=== PATIENT | female | born 1960 | race Caucasian/White ===

== ENCOUNTER → 2016-04-05 | Outpatient (CLI) | payer BC, OTHER ==
[~2016-04-05] MED LIST: 5 HTP; CALC-732 PO; CATHETER FLUSH 10 ML SYR IV PRN; IBUP-30 PO; IOHEXOL 350 MG/ML 150 ML (OMNIPAQUE 350) VIAL IV ONE; LRT10T PO; MULT1CAP27 PO; NS 100 ML (IVPB) BAG IV ONE; OMG1KC PO; RABE20TA PO
--- OUTSIDE RECORDS SUMMARY | 2016-04-05 09:43 | XMS REPORT | Continuity of Care Document ---
Author Author [facility] Organization [facility] Address Unknown Phone Unavailable Care Team Providers Care Manual Writer Name Role Phone GIO JIMÉNEZ MD PCP Insurance Providers Payer Name Policy Number Subscriber Name Relationship [id number] Fer Chairez Clive 18 Self / Same As Patient [id number] Shae Chairez 01 Advance Directives Directive Response Recorded Date/Time Advance Directives No 07/31/13 4:34pm Health Care Power of Mechanical Commissioning Engineer No 07/31/13 4:34pm Organ Donor Yes 07/31/13 4:34pm Problems No problem information available. Medications Current Home Medications Medication Dose Units Route Directions Days/Qty Instructions Start Date Fish Oil 1,000 Mg 3,000 Mg Oral Daily 11/28/11 Rabeprazole Sodium 20 Mg 20 Mg Oral Daily 11/28/11 Past Home Medications Medication Directions Ordered Status Calcium Carb/Vit D3/Minerals 1 Each Tab.chew, 1 Each Oral Daily 11/28/11 Discontinued Multivitamins 1 Each Capsule, 1 Each Oral Daily 11/28/11 Discontinued [5 Htp] , 11/28/11 Discontinued Loratadine 10 Mg Box, 1 Each Oral As Needed 11/28/11 Discontinued Ibuprofen 200 Mg Tablet, 200 Mg Oral As Needed 11/28/11 Discontinued Social History No social history. Hospital Discharge Instructions No hospital discharge instructions. Plan of Care Discharge Date 10/29/15 6:00am Prescriptions See Medication Section Functional Status No functional status results. Allergies, Adverse Reactions, Alerts Allergen Type Severity Reaction Status Last Updated Penicillins ([id number]) Allergy Unknown Active 02/01/06 Codeine Allergy Unknown Active 02/01/06 Immunizations No immunization records. Vital Signs No known vital signs results. Results No known relevant diagnostic tests, laboratory data and/or discharge summary. Procedures No known history of procedures. Encounters Encounter Location Arrival/Admit Date Discharge/Depart Date Attending Provider Departed Clinic [facility] 10/28/15 8:12pm 10/29/15 6: 00am KENYA SOLIS DO Registered Clinic [facility] 09/29/15 8:09am KENYA SOLIS DO
[2016-04-05 10:24] LABS: CREATININE SERUM 1.05 MG/DL (0.60-1.30)
--- NOTE | 2016-04-05 14:53 | Diagnostic Imaging Report ---
PROCEDURE: CT angiography of the chest with contrast. TECHNIQUE: Multiple contiguous axial images were obtained through the chest after uneventful bolus administration of intravenous contrast. Reconstructed CTA MIP acquisitions were also performed. INDICATION: Restrictive lung disease. Shortness of breath. CONTRAST: 125 mL of Omnipaque 350 is administered intravenously. FINDINGS: The pulmonary arteries demonstrate very good opacification with no filling defects to suggest pulmonary embolism. The thoracic aorta is normal in caliber. No dissection. There is no mediastinal mass or significantly enlarged lymph nodes. No axillary lymphadenopathy is seen. The cardiac size is normal. No pleural or pericardial effusion. There is a 7 mm nodule seen along the anterior aspect of the minor fissure likely related to a scar. There is otherwise no significant consolidation or mass. The osseous structures appear grossly unremarkable. There is mild nonspecific thickening in the left adrenal gland. Cholecystectomy clips are noted. IMPRESSION: 1. No pulmonary embolism or aortic dissection. 2. A 7 mm nodule along the anterior aspect of the minor fissure is favored to be a scar. Followup low-dose CT chest without contrast in four months is suggested to ensure stability. Dictated by: Dictated on workstation # [id number]
== END ==
LOC: RAD 09:40
PROVIDERS: ATTEND Nurse Practitioner Family
DX: R06.09 Other forms of dyspnea (principal); J98.4 Other disorders of lung; R06.02 Shortness of breath; F17.201 Nicotine dependence, unspecified, in remission
CPT/HCPCS: 36415; 71275; 82565; 84520

== ENCOUNTER → 2016-04-10 | Outpatient (CLI) | payer BC, OTHER ==
[~2016-04-10] MED LIST changes: -CATHETER FLUSH 10 ML SYR IV PRN; -IOHEXOL 350 MG/ML 150 ML (OMNIPAQUE 350) VIAL IV ONE; -NS 100 ML (IVPB) BAG IV ONE
--- OUTSIDE RECORDS SUMMARY | 2016-04-10 10:46 | XMS REPORT | Continuity of Care Document ---
Author Author [facility] Organization [facility] Address Unknown Phone Unavailable Care Team Providers Care Airport Control Operator Name Role Phone GIO JIMÉNEZ MD PCP Insurance Providers Payer Name Policy Number Sub[id number] [employer] [facility] Self / Same As Patient [id number] Shae Chairez 01 Advance Directives Directive Response Recorded Date/Time Advance Directives No 07/31/13 4:34pm Health Care Power of Dining Room Maid No 07/31/13 4:34pm Organ Donor Yes 07/31/13 [...] Type Severity Reaction Status Last Updated Penicillins ([id number]) Allergy Unknown Active 02/01/06 Codeine Allergy Unknown Active 02/01/06 Immunizations No immunization records. Vital Signs No known vital signs results. Results No known relevant diagnostic tests, laboratory data and/or discharge summary. Procedures No known history of procedures. Encounters Encounter Location Arrival/Admit Date Discharge/Depart Date Attending Provider Departed Clinic [facility] 10/28/15 8:12pm 10/29/15 6: 00am KENYA SOLIS DO Registered Clinic [facility] 09/29/15 8:09am KENYA SOLIS DO
--- NOTE | 2016-04-11 18:24 | Diagnostic Imaging Report ---
Bilateral screening mammogram The current study was also evaluated with a Computer Aided Detection (CAD) system. INDICATION: Screening. No current complaints stated on the questionnaire. COMPARISON: 01/24/2011. FINDINGS: The breasts are composed of scattered fibroglandular densities. There is no mass, architectural distortion, or suspicious cluster of calcifications. Allowing for technique and positional differences, no suspicious change is seen. IMPRESSION: No significant change. ACR BI-RADS Category 2: Benign findings. Result letter will be mailed to the patient. Note: At least 10% of breast cancer is not imaged by mammography. Dictated by: Dictated on workstation # [id number]
== END ==
LOC: RAD 10:43
PROVIDERS: ATTEND Family Medicine
DX: Z12.31 Encounter for screening mammogram for malignant neoplasm of breast (principal)
CPT/HCPCS: 77067

== ENCOUNTER → 2016-04-11 | Outpatient (CLI) | payer BC, OTHER ==
--- OUTSIDE RECORDS SUMMARY | 2016-04-11 09:11 | XMS REPORT | Continuity of Care Document ---
Author Author [facility] Organization [facility] Address Unknown Phone Unavailable Care Team Providers Care Consultants Intern Name Role Phone GIO JIMÉNEZ MD PCP Insurance Providers Payer Name Policy Number Subscriber Name Relationship [id number] Fer Chairez Clive 18 Self / Same As Patient [id number] Shae Chairez 01 Advance Directives Directive Response Recorded Date/Time Advance Directives No 07/31/13 4:34pm Health Care Power of Optical Engineering Technician No 07/31/13 4:34pm Organ Donor Yes 07/31/13 [...] Type Severity Reaction Status Last Updated Penicillins ([id number]) Allergy Unknown Active 02/01/06 Codeine Allergy Unknown Active 02/01/06 Immunizations No immunization records. Vital Signs No known vital signs results. Results No known relevant diagnostic tests, laboratory data and/or discharge summary. Procedures No known history of procedures. Encounters Encounter Location Arrival/Admit Date Discharge/Depart Date Attending Provider Departed Clinic [facility] 10/28/15 8:12pm 10/29/15 6: 00am KENYA SOLIS DO Registered Clinic [facility] 09/29/15 8:09am KENYA SOLIS DO
[2016-04-11 09:58] LABS: BASOPHILS # (AUTO) 0.1 10^3/uL (0.0-0.1); BASOPHILS % (AUTO) 1 % (0-10); EOSINOPHILS # (AUTO) 0.1 10^3/uL (0.0-0.3); EOSINOPHILS % (AUTO) 2 % (0-10); LYMPHOCYTES # (AUTO) 1.6 X 10^3 (1.0-4.0); LYMPHOCYTES % (AUTO) 25 % (12-44); MEAN CORPUSCULAR HEMOGLOBIN 28 PG (25-34); MEAN CORPUSCULAR HGB CONC 34 G/DL (32-36); MEAN CORPUSCULAR VOLUME 83 FL (80-99); MEAN PLATELET VOLUME 10.2 FL (7.4-10.4); MONOCYTES # (AUTO) 0.5 X 10^3 (0.0-1.0); MONOCYTES % (AUTO) 8 % (0-12); NEUTROPHILS % (AUTO) 64 % (42-75); PLATELET COUNT 215 10^3/uL (130-400); RED BLOOD COUNT 4.68 10^6/uL (4.35-5.85); RED CELL DISTRIBUTION WIDTH 12.7 % (10.0-14.5); WHITE BLOOD COUNT 6.3 10^3/uL (4.3-11.0)
[2016-04-11 10:20] LABS: ALANINE AMINOTRANSFERASE 67 U/L (0-55); ALBUMIN 4.6 G/DL (3.2-4.5); ANION GAP 10 MMOL/L (5-14); ASPARTATE AMINO TRANSFERASE 33 U/L (5-34); BILIRUBIN,TOTAL 0.5 MG/DL (0.1-1.0); BLOOD UREA NITROGEN 18 MG/DL (7-18); BUN/CREATININE RATIO 19; CARBON DIOXIDE 21 MMOL/L (21-32); CHLORIDE 108 MMOL/L (98-107); CREATININE SERUM 0.93 MG/DL (0.60-1.30); GFR ESTIMATED > 60; GLUCOSE 101 MG/DL (70-105); POTASSIUM 4.1 MMOL/L (3.6-5.0); SODIUM 139 MMOL/L (135-145); TOTAL PROTEIN 7.2 G/DL (6.4-8.2); hs C REACTIVE PROTEIN 0.38 MG/DL (0.00-0.50)
[2016-04-11 11:15] LABS: ERYTHROCYTE SEDIMENTATION RATE 5 MM/HR (0-30)
[2016-04-12 06:55] LABS: IMMUNOGLOBULIN IGG 771 mg/dL (672-1680)
[2016-04-12 16:00] LABS: ANCA PATTERN Not Indicated; ANTI NEUTROPHIL CYTOPLASM <1:20 (<1:20)
[2016-04-13 07:08] LABS: ANGIOTENSIN CONVERTING ENZYME 45 U/L (9-67)
[2016-04-13 07:09] LABS: ALLERGEN INTERP SEE FOOTNOTE
[2016-04-13 07:10] LABS: ELM TREE <0.35 (<0.35); ELM TREE CL CLASS 0; KENT BLUE CL CLASS 0; KENTUCKY BLUE GRASS RAST <0.35 (<0.35); OAK TREE <0.35 (<0.35); OAK TREE CL CLASS 0; PECAN TR CL CLASS 0
[2016-04-13 07:11] LABS: BERMUDA CL CLASS 0; BERMUDA GRASS RAST <0.35 (<0.35); CAT DANDER CL CLASS 0; CAT DANDER RAST <0.35 (<0.35); DOG DANDER CL CLASS 0; DOG DANDER RAST <0.35 (<0.35); DUST MITE CL CLASS 0; DUST MITE RAST <0.35 (<0.35); JOHNSON GR CL CLASS 0; JOHNSON GRASS RAST <0.35 (<0.35); MARSH ELDER RAST <0.35 (<0.35); RAGWEED CL CLASS 0; RAGWEED RAST <0.35 (<0.35); ROUGH MARSH CL CLASS 0
[2016-04-13 07:12] LABS: ALT TEN CL CLASS 0; CLADOSPORIUM CL CLASS 0; CLADOSPORIUM MOLD RAST <0.35 (<0.35)
[2016-04-14 16:32] LABS: ASPERGILLIUS ABY TOTAL SER IGE 7 IU/mL (3-48); ASPERGILLIUS IGE RAST COUNT <0.10 kU/L (<0.35)
[2016-04-15 13:23] LABS: IGG LYME B Negative (Negative); IGM LYME B Negative (Negative)
[2016-04-15 13:24] LABS: ASPERGILLIUS F IGG ABY 72.6 mcg/mL (<46.0); ASPERGILLIUS IGE RAST CLASS 0
[2016-04-15 13:36] LABS: LYME ANTIBODY C 0.23 (0.00-0.90)
== END ==
LOC: LAB 09:06
PROVIDERS: ATTEND Nurse Practitioner Family
DX: J98.4 Other disorders of lung (principal); R06.02 Shortness of breath
CPT/HCPCS: 36415; 80053; 82164; 82784; 82785; 85025; 85652; 86003; 86021; 86038; 86141; 86430; 86606; 86617; 86618

== ENCOUNTER → 2016-05-25 | Outpatient (CLI) | payer BC, OTHER ==
--- NOTE | 2016-05-29 09:02 | ECHOCARDIOGRAPHY REPORT ---
PROCEDURE PHYSICIAN: YESSI MCKEON DATE OF PROCEDURE: 05/25/2016 TWO DIMENSIONAL ECHOCARDIOGRAM REPORT PRIMARY PHYSICIAN: OTHER PHYSICIAN: REFERRING PHYSICIAN: Dr. Mendiola ORDERING PHYSICIAN: INDICATION FOR THE PROCEDURE: 1. Chest pain. 2. Hypertension. 3. Hyperlipidemia. MEASUREMENTS DERIVED VALUES LV DIAMETER (LAX) NORMALS NORMALS Diastolic 4.9 (3.6-5.2) Eject. Fract. 60% (60%+/-6%) Systolic (2.3-3.9) Diastolic Vol. % Shortening (0.22-0.42) Systolic Vol. Aortic Root IVS THICKNESS Diastolic 1.1 (0.6-1.1) LVPW THICKNESS Diastolic 1 (0.6-1.1) LA DIAMETER Systolic 4 (2.1-3.7) FINDINGS: 1. Technical quality is good. 2. The left ventricle is normal in size with normal contractility. Systolic function appeared to be normal. Estimated ejection fraction 60%. 3. The left atrium is in the upper normal limits. No clot or thrombus were seen within the left atrium. 4. The right atrium and right ventricle are normal in size. No clot or thrombus were seen within the right side. 5. Mitral valve is normal in morphology with mild mitral regurgitation noted by color Doppler flow. No mitral valve prolapse. No mitral valve stenosis. 6. Aortic valve is trileaflet with normal opening and closing pattern. No significant aortic stenosis or regurgitation was seen. 7. Tricuspid valve is normal in morphology with mild tricuspid regurgitation noted by color Doppler flow. 8. Pulmonic valve is functioning normally. 9. No pericardial effusion. IN CONCLUSION: 1. Normal left ventricular size and systolic function. Estimated ejection fraction 60%. 2. Left atrium is in the upper normal limits. 3. Mild mitral and tricuspid regurgitation. 4. Estimated pulmonary artery pressure of 35 mmHg. Job ID: [id number] Dictated Date: 05/29/2016 08:07:00 Emergency Medicine Nurse Practitioner Date: 05/29/2016 08:55:12 / bang
== END ==
LOC: CARD 11:09
PROVIDERS: ATTEND Internal Medicine Cardiovascular Disease
DX: J98.4 Other disorders of lung (principal); I49.3 Ventricular premature depolarization; G47.33 Obstructive sleep apnea (adult) (pediatric); E78.2 Mixed hyperlipidemia; I10 Essential (primary) hypertension; R07.9 Chest pain, unspecified
CPT/HCPCS: 93306

== ENCOUNTER → 2016-08-10 | Outpatient (CLI) | payer BC, OTHER ==
--- NOTE | 2016-08-10 13:24 | Diagnostic Imaging Report ---
PROCEDURE: CT chest without contrast. TECHNIQUE: Multiple contiguous axial images were obtained through the chest without the use of intravenous contrast. INDICATION: Followup pulmonary nodule. COMPARISON: 04/05/16. FINDINGS: Again seen is a 7 mm elongated nodule along the anterior aspect of the minor fissure without change. This is favored to represent a scar. There is no significant consolidation, mass or suspicious nodule seen. There is no pleural or pericardial effusion. The heart size is normal. The thoracic aorta is normal in caliber. There is no mediastinal lymphadenopathy. No axillary lymphadenopathy. No definite mass adjacent to unenhanced hilar vessels seen. Sections in the upper abdomen demonstrate cholecystectomy clips. The osseous structures appear grossly unremarkable. IMPRESSION: Elongated 7 mm nodule along the anterior aspect of the minor fissure is unchanged from 04/05/2016 exam suggestive of scarring. Another followup with a low dose unenhanced CT scan in 9-12 months is recommended to ensure further stability. Dictated by: Dictated on workstation # [id number]
== END ==
LOC: RAD 08:42
PROVIDERS: ATTEND Nurse Practitioner Family
DX: G47.33 Obstructive sleep apnea (adult) (pediatric) (principal); J98.4 Other disorders of lung; R06.02 Shortness of breath; F17.201 Nicotine dependence, unspecified, in remission; E66.9 Obesity, unspecified; R91.1 Solitary pulmonary nodule
CPT/HCPCS: 71250

== ENCOUNTER → 2017-07-30 | Outpatient (CLI) | payer BC, OTHER ==
--- NOTE | 2017-07-30 14:43 | Diagnostic Imaging Report ---
PROCEDURE: CT chest without contrast. TECHNIQUE: Multiple contiguous axial images were obtained through the chest without the use of intravenous contrast. INDICATION: Followup lung nodules. COMPARISON: 08/10/2016. FINDINGS: 7 mm somewhat elongated nodule in the anterior right upper lobe on series 2 image 33 is unchanged. No new nodules are seen. There is no pneumothorax or fluid. There is no adenopathy. Visualized upper abdomen appears unremarkable. The gallbladder is absent. IMPRESSION: 1. The 7 mm nodule in the anterior right upper lobe is unchanged the prior CT now unchanged from March 2016. Additional 6-12 month followup is suggested to confirm stability. 2. No new abnormality or significant interval change is seen. Dictated by: Dictated on workstation # [id number]
== END ==
LOC: RAD 13:42
PROVIDERS: ATTEND Internal Medicine Critical Care Medicine
DX: R91.1 Solitary pulmonary nodule (principal); G47.33 Obstructive sleep apnea (adult) (pediatric); J98.4 Other disorders of lung; E66.9 Obesity, unspecified; F17.201 Nicotine dependence, unspecified, in remission
CPT/HCPCS: 71250

== ENCOUNTER → 2018-07-24 | Outpatient (CLI) | payer BC, OTHER ==
--- NOTE | 2018-07-24 09:07 | Diagnostic Imaging Report ---
PROCEDURE: CT chest without contrast. TECHNIQUE: Multiple contiguous axial images were obtained through the chest without the use of intravenous contrast. Auto Exposure Controls were utilized during the CT exam to meet ALARA standards for radiation dose reduction. INDICATION: Restrictive lung disease and tobacco use. Correlation is made with prior CT chest from 07/30/2017. FINDINGS: No axillary lymphadenopathy is seen. No definite hilar or mediastinal lymphadenopathy is detected. There is no pericardial or pleural fluid detected. Previously noted density in the anterior aspect right upper lobe appear stable. This does not appear to be masslike most likely represents an area of subpleural scarring. No parenchymal nodules or masses are seen. Upper abdomen is unremarkable. IMPRESSION: Stable noncontrast CT chest when compared with exam one year earlier. Previously noted density in the anterior right upper lobe is stable and most likely represents an area of scarring. Dictated by: Dictated on workstation # [id number]
== END ==
LOC: RAD 08:03
PROVIDERS: ATTEND Nurse Practitioner Family
DX: J30.9 Allergic rhinitis, unspecified (principal); J98.4 Other disorders of lung; G47.33 Obstructive sleep apnea (adult) (pediatric); F17.200 Nicotine dependence, unspecified, uncomplicated; R91.8 Other nonspecific abnormal finding of lung field
CPT/HCPCS: 71250

== ENCOUNTER → 2019-07-28 | Outpatient (CLI) | payer BC, OTHER ==
[~2019-07-28] MED LIST changes: +RT-ALBUTEROL SULF 2.5 MG/3 ML PRE-MIX VIAL INH ONE; +RT-ALBUTEROL SULF 2.5 MG/3 ML PRE-MIX VIAL ONE
== END ==
LOC: RT 07:52
PROVIDERS: ATTEND Nurse Practitioner Family
DX: J98.4 Other disorders of lung (principal); G47.33 Obstructive sleep apnea (adult) (pediatric); J30.9 Allergic rhinitis, unspecified; R91.8 Other nonspecific abnormal finding of lung field; F17.200 Nicotine dependence, unspecified, uncomplicated; Z72.0 Tobacco use
CPT/HCPCS: 94060; 94726; 94729

== ENCOUNTER → 2019-10-07 | Outpatient (CLI) | payer BC, OTHER ==
[~2019-10-07] MED LIST changes: -RT-ALBUTEROL SULF 2.5 MG/3 ML PRE-MIX VIAL INH ONE; -RT-ALBUTEROL SULF 2.5 MG/3 ML PRE-MIX VIAL ONE
--- NOTE | 2019-10-07 14:54 | Diagnostic Imaging Report ---
CT CHEST SCREENING WO. TECHNIQUE: Low-dose unenhanced CT of the chest was performed according to the screening protocol. Coronal MIP and sagittal MPR reformats are created. Automatic exposure controls were utilized to keep dose as low as reasonably achievable. INDICATION: 66-pack year history of smoking. Current smoker. COMPARISON: CT chest of 03/26/2018. FINDINGS: Pulmonary findings: No endoluminal nodule within the trachea. Mild centrilobular emphysema is unchanged. No pulmonary mass or consolidation has developed. There are few scattered calcified pulmonary granulomas that are stable. No pulmonary nodules have developed. Extrapulmonary findings: No pleural effusion or axillary lymphadenopathy. No mediastinal, discrete hilar, or juxtaphrenic lymphadenopathy. Heart is normal in size without pericardial effusion. Normal-caliber thoracic aorta. Esophagus is unremarkable. Cholecystectomy. IMPRESSION: 1. No change that would indicate clinically active lung cancer. Lung-RADS category: 1 - Negative Recommendations: Continued annual screening with low-dose CT in 12 months. Dictated by: Dictated on workstation # [id number]
== END ==
LOC: RAD 12:35
PROVIDERS: ATTEND Nurse Practitioner Family
DX: Z12.2 Encounter for screening for malignant neoplasm of respiratory organs (principal); F17.210 Nicotine dependence, cigarettes, uncomplicated

== ENCOUNTER → 2019-10-23 | Outpatient (CLI) | payer BC, OTHER ==
--- NOTE | 2019-10-23 16:54 | Diagnostic Imaging Report ---
INDICATION: Right breast density. Patient presents for additional views. CORRELATION is made with recent screening study from 10/10/2019 as well as prior mammograms dating back to 2010. Unilateral right 2-D and 3-D diagnostic mammography was performed including spot compression CC and ML views as well as conventional 90 degree lateral views. Additional views fail to demonstrate a discrete mass. The density noted in the lateral right breast appears to have resolved and most likely represents fibroglandular tissue. No suspicious microcalcifications are seen. IMPRESSION: BI-RADS Category 1 Additional views fail to demonstrate a discrete mass. The patient may return to routine annual screening mammography. ACR BI-RADS Category 1: Negative. Result letter will be mailed to the patient. Note: At least 10% of breast cancer is not imaged by mammography. Dictated by: Dictated on workstation # [id number]
== END ==
LOC: RAD 13:15
PROVIDERS: ATTEND Family Medicine
DX: R92.2 Inconclusive mammogram (principal)
CPT/HCPCS: 77065; G0279

== ENCOUNTER 2020-08-06 09:14 | Outpatient (CLI) | payer BC, OTHER ==
[~2020-08-06] VITALS: Ht 162.5 cm; Wt 82.7 kg
[2020-08-06] MEDS ORDERED: MONT10TA21 PO (11:17)
[2020-08-06] MEDS ORDERED: FLUT1AER IH (11:17)
[2020-08-06] MEDS ORDERED: MELO10CA3 PO (11:17)
[2020-08-06] MEDS ORDERED: ATOR20TA49 PO (11:17)
[2020-08-06] MEDS ORDERED: TIOT18CA2 IH (11:17)
== END 2020-08-06 11:38 | disposition home or self-care (01) ==
LOC: PREOP 09:14
PROVIDERS: ATTEND Surgery
DX: Z01.818 Encounter for other preprocedural examination (principal)

== ENCOUNTER 2020-08-11 12:57 | Day surgery (SDC) | payer BC, OTHER ==
[2020-08-11] VITALS (13 sets, daily range): BP systolic 95–163; BP diastolic 47–78
[~2020-08-11] VITALS: Ht 162 cm; Wt 82.7 kg
[~2020-08-11 12:57] MED LIST changes: +ATOR20TA49 PO; +FLUT1AER IH; +MELO10CA3 PO; +MONT10TA21 PO; +TIOT18CA2 IH
--- NOTE | 2020-08-11 13:02 | Conscious Sedation/ASA ---
Conscious Sedation Pre-Proced Time 13:00 ASA Score 2 For ASA 3 and 4: Consider anesthesia and medical clearance. Also, for patients with a history of failed moderate sedation consider anesthesia. Airway Lungs Heart ASA score ASA 1: a normal healthy patient ASA 2: a patient with a mild systemic disease (mid diabetes, controlled hypertension, obesity ASA 3: a patient with a severe systemic disease that limits activity (angina, COPD, prior Myocardial infarction) ASA 4: a patient with an incapacitating disease that is a constant threat to life (CHF, renal failure) ASA 5: a moribund patient not expected to survive 24 hrs. (ruptured aneurysm) ASA 6: a declared brain- patient whose organs are being harvested. For emergent operations, add the letter E after the classification Mallampati Classification Grade 2 Sedation Plan Analgesia, Amnesia, Plan communicated to team members, Discussed options with patient/fam, Discussed risks with patient/fam The patient is an appropriate candidate to undergo the planned procedure, sedation, and anesthesia. The patient immediately re-assessed prior to indication. ANN CRUZ MD Aug 11, 2020 13:02
--- NOTE | 2020-08-11 13:03 | Progress Note-Pre Operative ---
Pre-Operative Progress Note H&P Reviewed The H&P was reviewed, patient examined and no changes noted. Date Seen by Provider: Aug 11, 2020 Time Seen by Provider: 13:00 Date H&P Reviewed: Aug 11, 2020 Time H&P Reviewed: 13:00 Pre-Operative Diagnosis: screening ANN Wise MD Aug 11, 2020 13:02
--- NOTE | 2020-08-11 13:04 | Discharge Inst-Surgical ---
D/C Lap Instructions-ANTHONY Follow Up Activity as tolerated High Fiber Diet 25g or more per day Avoid Alcohol, Caffeine, Spicy [place] and Acid foods. Drink 64 fluid oz or more of fluids per day. Symptoms to Report: Fever over 101 degree F, Nausea/Vomiting If any problems/questions: Contact your physician or go to Emergency Room ANN CRUZ MD Aug 11, 2020 13:04
[2020-08-11] MEDS ORDERED: HYDROcodone/APAP 5 MG/325 MG (LORTAB) TAB PO PRN (13:15)
[2020-08-11] MEDS ORDERED: ONDANSETRON 4 MG/2 ML (SDV) Z0FRAN IVP PRN (13:15)
[2020-08-11] MEDS ORDERED: ACETAMINOPHEN 325 MG TABLET PO PRN (13:15)
[2020-08-11] MEDS ORDERED: morphine INJ 10 MG/ML 1ML (SYR OR VIAL) IVP PRN ×2 (13:15)
[2020-08-11] MEDS ORDERED: NS IV 500 ML 500 ML ONE (13:26)
[2020-08-11] MEDS ORDERED: LIDOCAINE JELLY 2% 6 ML SYRINGE MM PRN (13:30)
[2020-08-11] MEDS ORDERED: NS IV 500 ML 500 ML IV PRN (13:30)
[2020-08-11] MEDS ORDERED: MIDAZOLAM 5 MG/5 ML (VERSED) VIAL IV ONE (13:30)
[2020-08-11] MEDS ORDERED: fentaNYL INJ 100 MCG/2 ML AMP IVP ONE (13:30)
[2020-08-11] MEDS ORDERED: MIDAZOLAM 5 MG/5 ML (VERSED) VIAL ONE ×2 (15:24→15:46)
[2020-08-11] MEDS ORDERED: fentaNYL INJ 100 MCG/2 ML AMP ONE ×2 (15:24→15:46)
--- NOTE | 2020-08-11 16:54 | Progress Note-Post Operative ---
Post-Operative Progess Note Surgeon (s)/Theatrical Rigger (s) Surgeon ANN CRUZ MD Theatrical Rigger: none Pre-Operative Diagnosis screening colo Post-Operative Diagnosis mild chronic stage 2 ext and int hemorrhoids, mild sigmoid diverticulosis. Procedure & Operative Findings Date of Procedure 08/11/20 Procedure Performed/Findings colonoscopy Anesthesia Type cs Estimated Blood Loss Estimated blood loss (mL): minimal Specimens/Packing Specimens Removed none ANN CRUZ MD Aug 11, 2020 16:54
[2020-08-11] MEDS ORDERED: ONDANSETRON 4 MG/2 ML (SDV) Z0FRAN ONE (17:08)
--- NOTE | 2020-08-11 20:41 | OPERATIVE REPORT ---
DATE OF SERVICE: 08/11/2020 ATTENDING PRIMARY CARE PHYSICIAN: Dr. Benoit Vallecillo PREOPERATIVE DIAGNOSIS: Screening colonoscopy. POSTOPERATIVE DIAGNOSES: Mild chronic stage II external and internal hemorrhoids, mild to moderate sigmoid diverticulosis. PROCEDURE: Colonoscopy. SURGEON: Ann Cruz MD. ANESTHESIA: Conscious sedation. ESTIMATED BLOOD LOSS: Minimal. FINDINGS: Mild chronic stage II external and internal hemorrhoids, mild to moderate sigmoid diverticulosis. DISPOSITION: The patient tolerated the procedure well. INDICATIONS: The patient is a 59-year-old female in need of a screening colonoscopy. Her last colonoscopy was approximately 10 years ago, and a benign hyperplastic polyp was identified. She states also did have the possibility of diverticulitis and was treated empirically 6 months ago with oral antibiotics, which did resolve on its own. She does not report any family history of colon cancer. DESCRIPTION OF PROCEDURE: The patient was brought to the endoscopy suite, laid in the left lateral decubitus position. After adequate IV pain and sedative medications and conscious sedation anesthesia, digital rectal examination was performed. Mild chronic stage II external and internal hemorrhoids were identified, which were not actively edematous nor inflamed and no bleeding. Normal sphincter tone was felt and there were no palpable masses. The endoscope was then intubated to the anus and rectum gently insufflated. The endoscope was then advanced through the valves of [place] of the rectum with no polyps or any neoplasms identified. Through the sigmoid colon, mild to moderate sigmoid diverticulosis identified. The endoscope was then advanced through the remainder of the descending, transverse and ascending colon to the cecum, which were normal. There were no polyps or any neoplasms identified. The endoscope was then slowly withdrawn while taking a second look and suctioning of residual air with no additional findings. The patient tolerated the procedure well. We will recommend conservative medical management with a high fiber diet with at least 25 grams of fiber daily as well as significant amounts of water to promote soft stools on a daily basis. If she is asymptomatic, she does not need another colonoscopy for another 10 years. Job ID: [id number] DocumentID: [id number] Dictated Date: 08/11/2020 16:08:00 Paster Supervisor Date: 08/11/2020 20:40:41 Dictated By: ANN CRUZ MD
== END 2020-08-11 17:25 | disposition home or self-care (01) ==
LOC: ENDO 12:57
PROVIDERS: ATTEND Surgery
DX: Z12.11 Encounter for screening for malignant neoplasm of colon (principal); K64.1 Second degree hemorrhoids; K57.30 Diverticulosis of large intestine without perforation or abscess without bleeding; E78.5 Hyperlipidemia, unspecified; F17.210 Nicotine dependence, cigarettes, uncomplicated; Z78.0 Asymptomatic menopausal state; Z90.49 Acquired absence of other specified parts of digestive tract; Z79.899 Other long term (current) drug therapy

== ENCOUNTER → 2020-10-07 | Outpatient (CLI) | payer BC, OTHER ==
--- NOTE | 2020-10-07 09:35 | Diagnostic Imaging Report ---
EXAMINATION: CT chest without contrast (lung screening). TECHNIQUE: Multiple contiguous axial images were obtained through the chest without the use of intravenous contrast according to lung cancer screening protocol. All CT scans use one or more of the following dose optimizing techniques: automated exposure control, MA and/or KvP adjustment based on patient size and exam type or iterative reconstruction. HISTORY: 68 pack year history of smoking. COMPARISON: 10/07/2019 FINDINGS: There is no edema or pneumonia. No pleural effusion. No pneumothorax. No suspicious nodules. There is no axillary or supraclavicular lymphadenopathy. There is no mediastinal lymphadenopathy. Heart size is normal. There are no coronary artery calcifications. No pericardial effusion. Aorta is normal in caliber. Limited views of the upper abdomen show changes of cholecystectomy. There are no suspicious osseus lesions. IMPRESSION: 1. No suspicious pulmonary nodules. LUNG-RADS CATEGORY: 1 MODIFIER: None. Dictated by: Dictated on workstation # [id number]
== END ==
LOC: RAD 09:15
PROVIDERS: ATTEND Nurse Practitioner Family
DX: Z12.2 Encounter for screening for malignant neoplasm of respiratory organs (principal); F17.210 Nicotine dependence, cigarettes, uncomplicated
CPT/HCPCS: 71271

== ENCOUNTER 2022-02-03 19:10 | Emergency (ER) | payer OTHER ==
[~2022-02-03] VITALS: Ht 165 cm; Wt 78.2 kg
[2022-02-03] MEDS ORDERED: FLUT1BLS (19:22)
[2022-02-03] MEDS ORDERED: SERT-413 (19:22)
--- NOTE | 2022-02-03 19:27 | ED Abdominal Pain ---
General Chief Complaint: Abdominal/GI Problems Stated Complaint: DIVERTICULITIS SYMPTOMS Source of Information: Patient Exam Limitations: No Limitations (MAXIMO JAVIER APRN) History of Present Illness Date Seen by Provider: Feb 03, 2022 Time Seen by Provider: 19:20 Initial Comments Patient is a 61-year-old female who presents to the emergency department with 2 to 3 days of left lower quadrant abdominal pain. Patient states she has had diverticulitis once in the past and states the current symptoms are similar. She denies any fever, nausea/vomiting/diarrhea, or any pain outside of left lower quadrant of her abdomen. No urinary symptoms. She has not been taking any medication recently. (MAXIMO JAVIER APRN) Allergies and Home Medications Allergies Coded Allergies: Penicillins (Unverified Allergy, Unknown, 02/01/06) codeine (Unverified Allergy, Unknown, 02/01/06) Patient Home Medication List Home Medication List Reviewed: Yes (MAXIMO JAVIER APRN) Atorvastatin Calcium (Lipitor) 20 Mg Tablet, 20 MG PO DAILY, (Reported) Entered as Reported by: ALEJANDRA HERNANDEZ on 08/06/20 111 Fluticasone/Vilanterol (Breo Ellipta 100-25 Mcg INH) 1 Each Blst.w.dev, 1 EACH IH DAILY, (Reported) Entered as Reported by: ALEJANDRA HERNANDEZ on 08/06/201116 Fluticasone/Vilanterol (Breo Ellipta 200-25 Mcg INH) 200 Mcg-25 Mcg/Dose Blst.w.dev, (Reported) Entered as Reported by: LEONILA KAUR on 02/03/221921 Last Action: New Order Hydrocodone Bit/Acetaminophen (HYDROcodone/APAP 5 MG/325 MG TAB) 1 Tab Tab, 1 TAB PO Q6H PRN for PAIN-MODERATE (5-7) Prescribed by: Maximo Javier on 02/03/222027 Meloxicam, Submicronized (Meloxicam) 10 Mg Capsule, 10 MG PO DAILY, (Reported) Entered as Reported by: ALEJANDRA HERNANDEZ on 08/06/201116 Metronidazole (Metronidazole) 500 Mg Tablet, 500 MG PO TID Prescribed by: Maximo Javier on 02/03/222027 Montelukast Sodium (Singulair) 10 Mg Tablet, 10 MG PO DAILY, (Reported) Entered as Reported by: ALEJANDRA HERNANDEZ on 08/06/20 111 Rabeprazole Sodium (Aciphex) 20 Mg Tablet.dr, 20 MG PO DAILY, (Reported) Entered as Reported by: ADRIAN CANNON on 11/28/11 1007 Sertraline HCl (Sertraline HCl) 50 Mg Tablet, (Reported) Entered as Reported by: LEONILA KAUR on 02/03/221921 Last Action: New Order Sulfamethoxazole/Trimethoprim (Bactrim Ds Tablet) 1 Each Tablet, 1 EACH PO BID Prescribed by: Maximo Javier on 02/03/222027 Tiotropium [place] (Spiriva) 1 Inh Aerp, 1 INH IH DAILY, (Reported) Entered as Reported by: ALEJANDRA HERNANDEZ on 08/06/20 111 Review of Systems Review of Systems Constitutional: no symptoms reported EENTM: No Symptoms Reported Respiratory: No Symptoms Reported Cardiovascular: No Symptoms Reported Gastrointestinal: See HPI, Abdominal Pain Genitourinary: No Symptoms Reported Musculoskeletal: no symptoms reported Skin: no symptoms reported Psychiatric/Neurological: No Symptoms Reported Endocrine: No Symptoms Reported Hematologic/Lymphatic: No Symptoms Reported (MAXIMO JAVIER APRN) Past Dgqjvxm-Gevozf-Kwrktv Hx Patient Social History Tobacco Use?: No Substance use?: No Alcohol Use?: No Pt feels they are or have been: No (MAXIMO JAVIER APRN) Immunizations Up To Date Influenza Vaccine Up-to-Date: Yes; Up-to-Date First/Initial COVID19 Vaccinat: 05/2020 (MAXIMO JAVIER APRN) Seasonal Allergies Seasonal Allergies: Yes (MAXIMO JAVIER APRN) Past Medical History Surgery/Hospitalization HX: cholecystectomy, high cholesterol, diverticulitis, depression, anxiety Surgeries: Yes (CARPAL TUNNEL, BACK) Gallbladder Respiratory: Yes Asthma, Sleep Apnea, COPD Currently Using CPAP: Yes Cardiac: Yes Irregular Heartbeat Neurological: No Genitourinary: No Gastrointestinal: No Musculoskeletal: No Endocrine: No HEENT: No Cancer: No Psychosocial: No Integumentary: No Blood Disorders: No Adverse Reaction/Blood Tranf: No (MAXIMO JAVIER APRN) Physical Exam Vital Signs Vital Signs - First Documented 02/03/22 19:18 Temp 36.7 Pulse 65 Resp 16 B/P (MAP) 148/68 (94) Pulse Ox 97 O2 Delivery Room Air (NORMAN RING MD) Vital Signs Capillary Refill : (MAXIMO JAVIER APRN) Height/Weight/BMI Height: 5'6.00" Weight: 178lbs. oz. 80.853566ah; 31.51 BMI Method: General Appearance: WD/WN, no apparent distress HEENT: PERRL/EOMI, normal ENT inspection, TMs normal, pharynx normal Neck: non-tender, full range of motion, supple, normal inspection Respiratory: chest non-tender, lungs clear, normal breath sounds, no respiratory distress, no accessory muscle use Cardiovascular: regular rate, rhythm Gastrointestinal: normal bowel sounds, soft, no organomegaly, tenderness (LLQ) Extremities: normal range of motion, non-tender, normal inspection, no pedal edema, no calf tenderness Neurologic/Psychiatric: no motor/sensory deficits, alert, normal mood/affect, oriented x 3 (MAXIMO JAVIER APRN) Progress/Results/Core Measures Results/Orders Lab Results Laboratory Tests Test 02/03/22 19:05 02/03/22 19:30 Range/Units White Blood Count 15.4 H 4.3-11.0 10^3/uL Red Blood Count 5.60 H 3.80-5.11 10^6/uL Hemoglobin 15.8 11.5-16.0 g/dL Hematocrit 47 35-52 % Mean Corpuscular Volume 85 80-99 fL Mean Corpuscular Hemoglobin 28 25-34 pg Mean Corpuscular Hemoglobin Concent 33 32-36 g/dL Red Cell Distribution Width 13.6 10.0-14.5 % Platelet Count 212 130-400 10^3/uL Mean Platelet Volume 10.1 9.0-12.2 fL Immature Granulocyte % (Auto) 1 % Neutrophils (%) (Auto) 81 H 42-75 % Lymphocytes (%) (Auto) 9 L 12-44 % Monocytes (%) (Auto) 8 0-12 % Eosinophils (%) (Auto) 1 0-10 % Basophils (%) (Auto) 1 0-10 % Neutrophils # (Auto) 12.5 H 1.8-7.8 10^3/uL Lymphocytes # (Auto) 1.4 1.0-4.0 10^3/uL Monocytes # (Auto) 1.2 H 0.0-1.0 10^3/uL Eosinophils # (Auto) 0.1 0.0-0.3 10^3/uL Basophils # (Auto) 0.1 0.0-0.1 10^3/uL Immature Granulocyte # (Auto) 0.1 0.0-0.1 10^3/uL Neutrophils % (Manual) 83 % Lymphocytes % (Manual) 14 % Monocytes % (Manual) 3 % Sodium Level 135 135-145 MMOL/L Potassium Level 3.9 3.6-5.0 MMOL/L Chloride Level 101 98-107 MMOL/L Carbon Dioxide Level 21 21-32 MMOL/L Anion Gap 13 5-14 MMOL/L Blood Urea Nitrogen 15 7-18 MG/DL Creatinine 0.86 0.60-1.30 MG/DL Estimat Glomerular Filtration Rate 78 BUN/Creatinine Ratio 17 Glucose Level 94 70-105 MG/DL Calcium Level 10.0 8.5-10.1 MG/DL Corrected Calcium 8.5-10.1 MG/DL Total Bilirubin 0.4 0.1-1.0 MG/DL Aspartate Amino Transf (AST/SGOT) 15 5-34 U/L Alanine Aminotransferase (ALT/SGPT) 19 0-55 U/L Alkaline Phosphatase 87 40-136 U/L Total Protein 7.6 6.4-8.2 GM/DL Albumin 4.7 H 3.2-4.5 GM/DL Urine Color YELLOW Urine Clarity CLEAR Urine pH 5.5 5-9 Urine Specific [place] >=1.030 1.016-1.022 Urine Protein NEGATIVE NEGATIVE Urine Glucose (UA) NEGATIVE NEGATIVE Urine Ketones NEGATIVE NEGATIVE Urine Nitrite NEGATIVE NEGATIVE Urine Bilirubin NEGATIVE NEGATIVE Urine Urobilinogen 0.2 < = 1.0 MG/DL Urine Leukocyte Esterase NEGATIVE NEGATIVE Urine RBC (Auto) NEGATIVE NEGATIVE Urine RBC NONE /HPF Urine WBC NONE /HPF Urine Crystals NONE /LPF Urine Bacteria NEGATIVE /HPF Urine Casts NONE /LPF Urine Mucus NEGATIVE /LPF Urine Culture Indicated NO (NORMAN RING MD) Medications Given in ED Current Medications Medications Dose Ordered Sig/Matt Route Start Time Stop Time Status Last Admin Dose Admin Metronidazole 500 mg ONCE ONCE PO 02/03/22 20:30 02/03/22 20:31 DC 02/03/22 20:38 500 MG Trimethoprim/ Sulfamethoxazole 1 ea ONCE ONCE PO 02/03/22 20:30 02/03/22 20:31 DC 02/03/22 20:38 1 EA (NORMAN RING MD) Vital Signs/I&O 02/03/22 02/03/22 19:18 20:40 Temp 36.7 36.7 Pulse 65 63 Resp 16 16 B/P (MAP) 148/68 (94) 135/72 Pulse Ox 97 97 O2 Delivery Room Air Room Air (NORMAN RING MD) Progress Progress Note : Progress Note Patient is nontoxic and well-hydrated on exam. Vital signs are overall reassuring. Left lower quadrant tenderness to palpation noted on abdominal exam. No abdominal distention or rigidity appreciated. Laboratory evaluation notable for leukocytosis. CT of the abdomen pelvis reveals colonic diverticulitis without evidence of perforation or abscess. Will treat with Bactrim and Flagyl given patient is allergic to penicillin and thus Augmentin monotherapy would not be tolerated. Discussed supportive care and anticipatory guidance. Follow-up with PCP. Return precautions for urgent symptomology d iscussed. Patient verbalized understanding. (MAXIMO JAVIER APRN) Departure Impression Primary Impression: Diverticulitis of intestine Qualified Codes: K57.32 - Diverticulitis of large intestine without perforation or abscess without bleeding Disposition: HOME, SELF-CARE Condition: Stable Departure-Patient Inst. Decision time for Depature: 20:20 (MAXIMO JAVIER APRN) Referrals: DELMI GRIDER MD (PCP/Family) Primary Care Physician Patient Instructions: Diverticulitis Scripts Hydrocodone Bit/Acetaminophen (HYDROcodone/APAP 5 MG/325 MG TAB) 1 Tab Tab 1 TAB PO Q6H PRN for PAIN-MODERATE (5-7) for 3 Days, #12 TAB 0 Refills Prov: MAXIMO JAVIER APRN 02/03/22 Metronidazole (Metronidazole) 500 Mg Tablet 500 MG PO TID for 10 Days, #30 TAB 0 Refills Prov: MAXIMO JAVIER APRN 02/03/22 Sulfamethoxazole/Trimethoprim (Bactrim Ds Tablet) 1 Each Tablet 1 EACH PO BID for 10 Days, #20 TAB 0 Refills Prov: MAXIMO JAVIER APRN 02/03/22 ATTENDING PHYSICIAN NOTE: I was physically present as attending physician in the emergency department during the care of this patient, but I was not directly involved in the decision making or delivery of care for this patient. (NORMAN RING MD) MAXIMO JAVIER APRN Feb 03, 2022 19:27 NORMAN RING MD Feb 04, 2022 07:36
[2022-02-03] MEDS ORDERED: NS 100 ML (IVPB) BAG IV ONE (19:30)
[2022-02-03] MEDS ORDERED: IOHEXOL 350 MG/ML 100 ML (OMNIPAQUE 350) VIAL IV ONE (19:30)
[2022-02-03 19:36] LABS: BASOPHILS # (AUTO) 0.1 10^3/uL (0.0-0.1); BASOPHILS % (AUTO) 1 % (0-10); EOSINOPHILS # (AUTO) 0.1 10^3/uL (0.0-0.3); EOSINOPHILS % (AUTO) 1 % (0-10); HEMATOCRIT 47 % (35-52); HEMOGLOBIN 15.8 g/dL (11.5-16.0); LYMPHOCYTES # (AUTO) 1.4 10^3/uL (1.0-4.0); LYMPHOCYTES % (AUTO) 9 % (12-44); MEAN CORPUSCULAR HEMOGLOBIN 28 pg (25-34); MEAN CORPUSCULAR HGB CONC 33 g/dL (32-36); MEAN CORPUSCULAR VOLUME 85 fL (80-99); MEAN PLATELET VOLUME 10.1 fL (9.0-12.2); MONOCYTES # (AUTO) 1.2 10^3/uL (0.0-1.0); MONOCYTES % (AUTO) 8 % (0-12); NEUTROPHILS # (AUTO) 12.5 10^3/uL (1.8-7.8); NEUTROPHILS % (AUTO) 81 % (42-75); PLATELET COUNT 212 10^3/uL (130-400); WHITE BLOOD COUNT 15.4 10^3/uL (4.3-11.0)
[2022-02-03 19:37] LABS: BILIRUBIN,URINE NEGATIVE (NEGATIVE); CLARITY,URINE CLEAR; COLOR,URINE YELLOW; GLUCOSE, URINE (UA) NEGATIVE (NEGATIVE); KETONES,URINE NEGATIVE (NEGATIVE); LEUKOCYTE ESTERASE ,URINE NEGATIVE (NEGATIVE); NITRITE,URINE NEGATIVE (NEGATIVE); PH,URINE 5.5 (5-9); PROTEIN,URINE NEGATIVE (NEGATIVE)
[2022-02-03 19:43] LABS: BACTERIA,URINE NEGATIVE /HPF
[2022-02-03 19:59] LABS: LYMPHOCYTES % (MANUAL) 14 %; MONOCYTES % (MANUAL) 3 %; NEUTROPHILS % (MANUAL) 83 %
[2022-02-03 20:00] LABS: ALANINE AMINOTRANSFERASE 19 U/L (0-55); ALBUMIN 4.7 GM/DL (3.2-4.5); ALKALINE PHOSPHATASE 87 U/L (40-136); BILIRUBIN,TOTAL 0.4 MG/DL (0.1-1.0); BUN/CREATININE RATIO 17; CARBON DIOXIDE 21 MMOL/L (21-32); CHLORIDE 101 MMOL/L (98-107); CREATININE SERUM 0.86 MG/DL (0.60-1.30); GFR ESTIMATED 78; GLUCOSE 94 MG/DL (70-105); POTASSIUM 3.9 MMOL/L (3.6-5.0); SODIUM 135 MMOL/L (135-145); TOTAL PROTEIN 7.6 GM/DL (6.4-8.2)
--- NOTE | 2022-02-03 20:20 | Diagnostic Imaging Report ---
PROCEDURE: CT abdomen and pelvis with contrast. TECHNIQUE: Multiple contiguous axial images were obtained through the abdomen and pelvis after administration of intravenous contrast. Auto Exposure Controls were utilized during the CT exam to meet ALARA standards for radiation dose reduction. All CT scans use one or more of the following dose optimizing techniques: automated exposure control, MA and/or KvP adjustment based on patient size and exam type or iterative reconstruction. INDICATION: Left lower quadrant pain. FINDINGS: The heart size is normal. The lung bases are clear. The liver is normal in size without focal lesions. Gallbladder is surgically absent. There is no biliary ductal dilatation. Spleen is normal. Pancreas and adrenal glands are unremarkable. Kidneys are normal in appearance. Aorta is nonaneurysmal. Bowel gas pattern is nonspecific. There is some inflammatory change in the left lower quadrant suspect for diverticulitis. There is no discrete abscess. There is no free air. The appendix is normal. There are degenerative changes in the spine. IMPRESSION: 1. Focal inflammatory changes in the left lower quadrant with a trace amount of free fluid; however, no discrete abscess. Findings are suspect for mild uncomplicated diverticulitis. There may be a mild reactive ileus. 2. Previous cholecystectomy. 3. No other acute abnormality in the abdomen or pelvis. Dictated by: Dictated on workstation # [id number]
[2022-02-03] MEDS ORDERED: ACHD5005 PO (20:28)
[2022-02-03] MEDS ORDERED: SULF1TAB38 PO (20:28)
[2022-02-03] MEDS ORDERED: METR-145 PO (20:28)
[2022-02-03] MEDS ORDERED: TRIM/SULFAMETH 160/800 (SEPTRA DS) TAB PO ONE (20:30)
[2022-02-03] MEDS ORDERED: metroNIDAZOLE 500 MG (FLAGYL) TAB PO ONE (20:30)
[2022-02-03 20:40] VITALS: BP 135/72
== END 2022-02-03 20:40 | disposition home or self-care (01) ==
LOC: EDUNIT# 19:10 → ER 19:12
DX: K57.32 Diverticulitis of large intestine without perforation or abscess without bleeding (principal); Z28.311 Partially vaccinated for COVID-19; Z88.5 Allergy status to narcotic agent; Z88.0 Allergy status to penicillin; Z90.49 Acquired absence of other specified parts of digestive tract
CPT/HCPCS: 36415; 74177; 80053; 81000; 85007; 85027

== ENCOUNTER 2022-04-08 20:28 | Emergency (ER) | payer OTHER ==
[~2022-04-08] VITALS: Ht 165.1 cm; Wt 77.1 kg
[~2022-04-08 20:28] MED LIST changes: +ACHD5005 PO; +FLUT1BLS; +METR-145 PO; +SERT-413; +SULF1TAB38 PO
[2022-04-08 20:40] VITALS: BP 145/70
[2022-04-08] MEDS ORDERED: TETRACAINE 0.5% OPHTH SOLN 4 ML BTL (SINGLE DOSE ONLY) OU ONE (21:00)
[2022-04-08] MEDS ORDERED: FLUORESCEIN (FLUOR-I-STRIPS) 1 MG STRP OU ONE (21:00)
[2022-04-08] MEDS ORDERED: BSS 15 ML IR ONE (21:00)
--- NOTE | 2022-04-08 21:12 | ED EENT ---
History of Present Illness General Chief Complaint: Eye Problems Stated Complaint: FB IN LEFT EYE Nursing Triage Note: PT AMB TO ED BY POV WITH C/O L EYE DISCOMFORT. PT REPORTS SHE IS NEW TO WEARING CONTACTS AND HAS BEEN ABLE TO GET THE LEFT ONE OUT FOR OVER 24 HOURS. EYE IS NOW IRRITATED AND VERY UNCOMFORTABLE. Source: patient History of Present Illness Date Seen by Provider: Apr 08, 2022 Time Seen by Provider: 20:42 Initial Comments PT ARRIVES VIA POV FROM HOME PT JUST STARTED USING CONTACTS FOR THE FIRST TIME THIS WEEK SHE IS SUPPOSED TO REMOVE THEM AFTER 8-10 HOURS. SHE REMOVED THEM THE FIRST TIME WITHOUT PROBLEMS-2 NIGHTS AGO HOWEVER, SINCE THIS TIME LAST NIGHT, SHE HAS NOT BEEN ABLE TO FIND/REMOVE LEFT CONTACT SHE HAS REPEATEDLY FLUSHED THE EYE WITH EYE SOLUTIONS SAFE FOR CONTACT LENSES SHE HAS REPEATEDLY TRIED TO FIND/REMOVE THE CONTACT FOR THE LAST 24 HOURS SHE IS HAVING INCREASED PAIN, REDNESS, LID SWELLING ALL DAY, SHE HAS CONTINUE D TO TRY TO FIND/REMOVED THE CONTACT SHE STATES HER VISION IS BLURRIER THAN IT WAS BEFORE SHE STARTED USING THE CONTACTS. SHE HAS A CONTACT IN RIGHT EYE, AND HAS NOT HAD ANY PROBLEMS WITH IT. SUPERVISOR GLYCERIN: DR. ROBERTS Allergies and Home Medications Allergies Coded Allergies: Penicillins (Unverified Allergy, Unknown, 02/01/06) codeine (Unverified Allergy, Unknown, 02/01/06) Patient Home Medication List Home Medication List Reviewed: Yes Atorvastatin Calcium (Lipitor) 20 Mg Tablet, 20 MG PO DAILY, (Reported) Entered as Reported by: ALEJANDRA HERNANDEZ on 08/06/20 111 Fluticasone/Vilanterol (Breo Ellipta 100-25 Mcg INH) 1 Each Blst.w.dev, 1 EACH IH DAILY, (Reported) Entered as Reported by: ALEJANDRA HERNANDEZ on 08/06/20 111 Fluticasone/Vilanterol (Breo Ellipta 200-25 Mcg INH) 200 Mcg-25 Mcg/Dose Blst.w.dev, (Reported) Entered as Reported by: LEONILA KAUR on 02/03/221921 Hydrocodone Bit/Acetaminophen (HYDROcodone/APAP 5 MG/325 MG TAB) 1 Tab Tab, 1 TAB PO Q6H PRN for PAIN-MODERATE (5-7) Prescribed by: Maximo Javier on 02/03/222027 Meloxicam, Submicronized (Meloxicam) 10 Mg Capsule, 10 MG PO DAILY, (Reported) Entered as Reported by: ALEJANDRA HERNANDEZ on 08/06/20 111 Metronidazole (Metronidazole) 500 Mg Tablet, 500 MG PO TID Prescribed by: Maximo Javier on 02/03/222027 Montelukast Sodium (Singulair) 10 Mg Tablet, 10 MG PO DAILY, (Reported) Entered as Reported by: ALEJANDRA HERNANDEZ on 08/06/20 111 Rabeprazole Sodium (Aciphex) 20 Mg Tablet.dr, 20 MG PO DAILY, (Reported) Entered as Reported by: ADRIAN CANNON on 11/28/111006 Sertraline HCl (Sertraline HCl) 50 Mg Tablet, (Reported) Entered as Reported by: LEONILA KAUR on 02/03/221921 Sulfamethoxazole/Trimethoprim (Bactrim Ds Tablet) 1 Each Tablet, 1 EACH PO BID Prescribed by: Maximo Javier on 02/03/222027 Tiotropium [place] (Spiriva) 1 Inh Aerp, 1 INH IH DAILY, (Reported) Entered as Reported by: ALEJANDRA HERNANDEZ on 08/06/201116 Review of Systems Review of Systems Constitutional: no symptoms reported Eyes: See HPI Past Zpfskmh-Rklfpf-Hbvlus Hx Patient Social History Tobacco Use?: Yes Tobacco type used: Cigarettes Smoking Status: Current Everyday Smoker Use of E-Cig and/or Vaping dev: No Substance use?: No Alcohol Use?: No Pt feels they are or have been: No Immunizations Up To Date Influenza Vaccine Up-to-Date: Yes; Up-to-Date First/Initial COVID19 Vaccinat: 05/2020 Second COVID19 Vaccination Jam: 05/2020 Third COVID19 Vaccination Date: 05/2020 Seasonal Allergies Seasonal Allergies: Yes Past Medical History Surgery/Hospitalization HX: cholecystectomy, high cholesterol, diverticulitis, depression, anxiety Surgeries: Yes (CARPAL TUNNEL, BACK) Gallbladder, Orthopedic Respiratory: Yes Asthma, Sleep Apnea, COPD Currently Using CPAP: Yes Cardiac: Yes High Cholesterol, Irregular Heartbeat Neurological: No INTERFACE ANALYST History: Menopausal Genitourinary: No Gastrointestinal: No Musculoskeletal: No Endocrine: No HEENT: No Cancer: No Psychosocial: No Integumentary: No Blood Disorders: No Adverse Reaction/Blood Tranf: No Physical Exam Vital Signs Vital Signs - First Documented 04/08/22 20:40 Temp 36.9 Pulse 79 Resp 18 B/P (MAP) 145/70 (95) Pulse Ox 98 O2 Delivery Room Air Height, Weight, BMI Height: 5'6.00" Weight: 178lbs. oz. 80.106574kt; 28.00 BMI Method: General Appearance: WD/WN, no apparent distress, other (ANXIOUS. REEKS OF CIGARETTES) Eyes: bilateral eye other (RIGHT EYE APPEARS GROSSLY NORMAL. LEFT EYE WITH MILD DIFFUSE PERIORBITAL SWELLING AND ERYTHEMA--UPPER AND LOWER EYELIDS. LEFT CONJUNCTIVA VERY INFLAMED, AND WATERY. THERE IS NO PURUELENT DRAINAGE. UNABLE TO VISUALIZE ANY CONTACT OR FOREIGN BODY AT THIS TIME. ) Neurologic/Psychiatric: no motor/sensory deficits, alert, oriented x 3 Skin: normal color, warm/dry Procedures/Interventions Eye : Location: left eye Anesthesia (gtts): Tetracaine Progress/Procedure Conclusion TETRACAINE INSTILLED IN LEFT EYE, WITH MUCH IMPROVEMENT IN EYE DISCOMFORT SWEPT THE ENTIRE EYE WITH STERILE Q-TIP, INCLUDING UNDER BOTH UPPER AND LOWER EYELIDS--NO CONTACT LENS FOUND, NO FOREIGN BODY OF ANY KIND WAS FOUND. EYELIDS EVERTED WELL. FLUORESCEIN STAIN, WITH PATCHY UPTAKE AND SUPERFICIAL ABRASIONS TO CORNEA, INSIDE OF LOWER EYELID, WELL CONJUNCTIVA. THERE IS MILD CONJUNCTIVAL SWELLING NOTED. EYE PROFUSELY IRRIGATED WITH STERILE SALINE Progress/Results/Core Measures Results/Orders My Orders Orders - LUIZ MARQUEZ DO Tetracaine 0.5% Ophth Bianca Sdv (Tetracai (04/08/22 21:00) Fluorescein Strips (Youwm-B-Vrdvpv) (04/08/22 21:00) Balanced Salt Irrigation Soln (Bss Irrig (04/08/22 21:00) Rx-Ofloxacin 0.3% Ophth Soln (Rx-Ocuflox (04/09/22 00:00) Rx-Ofloxacin 0.3% Ophth Soln (Rx-Ocuflox (04/08/22 21:16) Medications Given in ED Current Medications Medications Dose Ordered Sig/Matt Route Start Time Stop Time Status Last Admin Dose Admin Balanced Salt Solution 15 ml ONCE ONCE IR 04/08/22 21:00 04/08/22 21:01 DC 04/08/22 20:53 15 ML Fluorescein Sodium 1 mg ONCE ONCE OU 04/08/22 21:00 04/08/22 21:01 DC 04/08/22 20:53 1 MG Tetracaine HCl 4 ml ONCE ONCE OU 04/08/22 21:00 04/08/22 21:01 DC 04/08/22 20:53 4 ML Vital Signs/I&O 04/08/22 20:40 Temp 36.9 Pulse 79 Resp 18 B/P (MAP) 145/70 (95) Pulse Ox 98 O2 Delivery Room Air Blood Pressure Mean: 95 Progress Progress Note : Progress Note REVIEWED ANTICIPATED COURSE, SYMPTOMATIC TREATMENT, MEDICATIONS, NEED FOR FOLLOW UP AND RETURN PRECAUTIONS. PT SENT HOME WITH ANTIBIOTIC EYE DROPS, AND INSTRUCTED TO FOLLOW UP WITH DR. ROBERTS ON SUNDAY FOR FURTHER CARE Departure Impression Primary Impression: Injury of conjunctiva and corneal abrasion of left eye w/o FB Disposition: HOME, SELF-CARE Condition: Stable Departure-Patient Inst. Decision time for Depature: 21:10 Referrals: TIA ROBERTS OD, CHAD C MD (PCP/Family) Primary Care Physician Patient Instructions: Corneal Abrasion (DC) Add. Discharge Instructions: COOL COMPRESSES TO EYE DO NOT RUB EYE USE EYE DROPS PRESCRIBED DO NOT ATTEMPT TO PUT ANOTHER CONTACT IN, UNTIL YOU ARE SEEN AND CLEARED BY YOUR EYE DR FOLLOW UP WITH YOUR EYE DR ON SUNDAY FOR FURTHER CARE RETURN TO ER IF SYMPTOMS WORSEN All discharge instructions reviewed with patient and/or family. Voiced understanding. LUIZ MARQUEZ DO Apr 08, 2022 21:12
[2022-04-08] MEDS ORDERED: RX-OFLOXACIN 0.3% OPHTH SOLN 5 ML ONE (21:16)
[2022-04-09] MEDS ORDERED: RX-OFLOXACIN 0.3% OPHTH SOLN 5 ML OP SCH
== END 2022-04-08 21:24 | disposition home or self-care (01) ==
LOC: EDUNIT# 20:28 → ER 20:30
DX: H18.822 Corneal disorder due to contact lens, left eye (principal); G47.30 Sleep apnea, unspecified; F17.210 Nicotine dependence, cigarettes, uncomplicated; Z99.89 Dependence on other enabling machines and devices
CPT/HCPCS: 99281

== ENCOUNTER → 2022-04-12 | Outpatient (CLI) | payer OTHER | LOC: CARD 10:00 | PROVIDERS: ATTEND Physician Assistant | DX: I35.1 Nonrheumatic aortic (valve) insufficiency (principal); I10 Essential (primary) hypertension | CPT/HCPCS: 93306 ==

== ENCOUNTER → 2022-05-03 | Outpatient (CLI) | payer OTHER ==
[~2022-05-03] MED LIST changes: +CATHETER FLUSH 10 ML SYR IVP PRN
[2022-05-03 09:11] VITALS: BP 143/68
[2022-05-03 09:23] VITALS: BP 225/65
[2022-05-03 09:26] VITALS: BP 190/66
--- NOTE | 2022-05-03 15:56 | Cardiology Stress Test Report ---
Stress Test Report Date of Procedure/Referring: Date of Procedure: May 03, 2022 PCP Benoit Grider MD Admitting Physician Admitting Physician: Attending Physician: Raven Kong Indications: HTN Baseline Heart Rate: 51 Baseline Blood Pressure: Blood Pressure Systolic: 190 Blood Pressure Diastolic: 66 Vital Signs Date Time Temp Pulse Resp B/P (MAP) Pulse Ox O2 Delivery O2 Flow Rate FiO2 05/03/22 09:11 57 19 143/68 (93) 99 Room Air Baseline Vital Signs Vital Signs Date Time Temp Pulse Resp B/P (MAP) Pulse Ox O2 Delivery O2 Flow Rate FiO2 05/03/22 09:11 57 19 143/68 (93) 99 Room Air Baseline EKG: Baseline EKG: NSR Summary: After explaining the procedure and details to the patient, she signed the consent and was brought to the stress nuclear laboratory. Patient exercised on standard Toby protocol, EKG, heart rate and blood pressure were monitored continuously, resting and stress doses of radio tracer were injected, imaging was acquired and reviewed in the short axis, horizontal long axis and vertical long axis views Patient was able to exercise for a total of 7.30 minutes on Toby protocol, METs 9.1 Maximum heart rate 140 Maximum blood pressure 225/85 Stress EKG, Minimal nondiagnostic changes Recovery EKG, Return to baseline TID: 1.06 SSS: 3 SDS: 1 EF: 64 Conclusion: Good exercise tolerance for 7 minutes and 30 seconds on standard Toby protocol, 9.1 METS achieving 86% of maximum expected heart rate Appropriate heart rate response to exercise with hypertensive response to exercise with peak blood pressure 225/85 return to baseline during recovery Minimal nondiagnostic EKG changes with exercise return to baseline during recovery No significant ischemia or infarction noted on SPECT images Normal left ventricular size, ejection fraction 64% Copy Copies To 1: BENOIT GRIDER MD, BASHAR J MD May 03, 2022 15:56
== END ==
LOC: CARD 08:00
PROVIDERS: ATTEND Physician Assistant
DX: I10 Essential (primary) hypertension (principal)
CPT/HCPCS: 78452; 93017